=== PATIENT | male | born 1965 | race Caucasian/White ===

== ENCOUNTER 2023-02-19 07:53 | Outpatient (RCR) | payer OTHER, SELFPAY ==
--- NOTE | 2023-02-19 08:46 | PTOPEVAL1 ---
Assessment and note entered by Eve Grullon, PT Evaluation Information Assessment Status Evaluation Diagnosis L gastroc muscle strain Onset December 10, 2022 Subjective Information onset of pain when he started running again, had not run for about 2 years; have stopped running due to this pain; no testing or imaging; no pain with walking; have history of low back & hip pain; and L ankle ORIF; does regular fitness exercises and swims; have not been swimming for past 3 weeks due to pool closed for repairs at the gym; wants to return to running; Reported Pain Level Pain Score Self Report Additional Pain Score Comments pain range of 0-7/10; L gastroc- distal, sharp stabbing pain; increase with running; decrease pain with sitting, rest; Assessment PT Clinical Summary [place] has the diagnosis of L gastroc strain, with onset of pain when increase activity of running. He has stopped running due to the pain. His history includes low back pain, bilateral hip pain and L ankle ORIF. With the evaluation, he has good ROM of L hip, knee and ankle, except hip IR is less and painful. There is tenderness and spasms over L mid to distal gastroc. Skilled PT services are indicated for modalities to decrease pain and spasms over gastroc, therapeutic exercises and activities to improve alignment of LE with running. Education for home exercises and positioning of LE. Plan of Care Interventions Gait Training,Hot Pack/Cold Pack,Manual Therapy, Neuro Re-education,Patient/Caregiver Education, Therapeutic Activities,Therapeutic Exercise, Ultrasound,Other Other Interventions [facility] PT Services Indicated Yes Treatment Frequency and 1x/wk for 6 weeks Duration These treatments will address the objective and functional deficits as defined above. The patient will be advanced safely and appropriately in order for the patient to progress towards his/her prior level of function. Additional exercises will be introduced and as well as a comprehensive home exercise program upon discharge, if needed, ?to ensure carryover of functional gains achieved in the clinic. This treatment plan has been reviewed and agreement upon by the patient.
--- NOTE | 2023-02-19 09:03 | PCPTNOTE ---
the order that pt has states the diagnosis of psoas strain ; during the eval, he reports he has gastroc strain and requests treatment for gastroc, he thought the order was for his calf. I called dr office and they clarified that we can treat his gastroc, I faxed an order for to sign;
--- NOTE | 2023-02-25 10:59 | PTOPDC ---
Assessment and note entered by Eve Grullon, PT Evaluation Information Assessment PT Clinical Summary Ajay received the PT evaluation, then called to cancel therapy, stated going somewhere else for therapy. Discharge PT per pt request. Plan of Care PT Services Indicated Yes
== END 2023-02-25 12:54 | disposition home or self-care (01) ==
LOC: ANHPT 07:53
PROVIDERS: PCP Internal Medicine Geriatric Medicine; Visit Provider Internal Medicine Geriatric Medicine
DX: S76.019D Strain of muscle, fascia and tendon of unspecified hip, subsequent encounter (principal)
CPT/HCPCS: 97161